=== PATIENT | male | born 1990 | race Caucasian/White ===

== ENCOUNTER 2017-10-09 21:10 | Inpatient (IN) | payer SELFPAY ==
[2017-10-09 22:56] LABS: BASO % 0.8 % (0.0-2.0); EOS % 0.5 % (0.0-4.0); HEMATOCRIT 43.1 % (35.0-51.0); LYMPH % 16.4 % (20.0-40.0); MEAN CELL VOLUME 87.9 fL (80.0-94.0); MEAN CORPUSCULAR HEMOGLOBIN 30.4 pg (27.0-31.0); MEAN CORPUSCULAR HGB CONC 34.6 g/dL (33.0-37.0); MEAN PLATELET VOLUME 7.5 fL (7.2-11.7); MONO # 0.4 K/uL (0.0-0.8); MONO % 7.1 % (0.0-10.0); RED CELL DISTRIBUTION WIDTH 12.8 % (11.5-14.5); WHITE BLOOD COUNT 6.2 K/uL (4.8-10.8)
[2017-10-09 22:58] LABS: RBC URINE 1 /hpf (0-3); URINE BILIRUBIN NEGATIVE (NEGATIVE); URINE BLOOD NEGATIVE (NEGATIVE); URINE COLOR Yellow (YELLOW); URINE GLUCOSE (UA) NORMAL (Normal); URINE KETONE TRACE mg/dL (NEGATIVE); URINE LEUKOCYTE ESTERASE NEG Leu/uL (Negative); URINE PROTEIN NEGATIVE (NEGATIVE); WBC URINE 1 /hpf (0-5)
--- NOTE | 2017-10-09 22:58 | C.PDOC ---
History Of Present Illness Patient presents to ED stating he is depressed and wants to kill himself. Patient is pleasant and cooperative; denies physical complaints. Time Seen by Provider: 10/09/17 22:57 Chief Complaint (Nursing): Psychiatric Evaluation History Per: Patient History/Exam Limitations: no limitations Onset/Duration Of Symptoms: Hrs Current Symptoms Are (Timing): Still Present Suicide/Self Injury Attempted (Context): None Modifying Factor(s): None Severity: None Pain Scale Rating Of: 0 Associated Symptoms: Depression, Suicidal Thoughts. denies: Suicidal Plan Involuntary Hold By: None Recent travel outside of the [place]: No Additional History Per: Patient Past Medical History Reviewed: Historical Data, Nursing Documentation, Vital Signs Vital Signs: Last Vital Signs Temp 98.0 F 10/10/17 00:26 Pulse 67 10/10/17 00:26 Resp 18 10/10/17 00:26 BP 133/90 10/10/17 00:26 Pulse Ox 100 10/10/17 00:26 - Medical History PMH: Asthma Denies: Hepatitis, HIV, HTN Surgical History: No Surg Hx Family History: States: No Known Family Hx - Social History Hx Alcohol Use: No Hx Substance Use: Yes Review Of Systems Constitutional: Negative for: Fever, Chills Gastrointestinal: Negative for: Nausea, Vomiting, Diarrhea Neurological: Negative for: Weakness Psych: Positive for: Depression, Suicidal ideation Physical Exam - Physical Exam Appears: Non-toxic, Other (Awake and alert) Skin: Warm, Dry Head: Normacephalic Eye(s): bilateral: Normal Inspection Oral Mucosa: Moist Neck: Supple Chest: Symmetrical, No Tenderness Cardiovascular: Rhythm Regular Respiratory: No Rales, No Rhonchi, No Wheezing Gastrointestinal/Abdominal: Soft, No Tenderness Back: No CVA Tenderness Extremity: Normal ROM Extremity: Bilateral: Atraumatic Neurological/Psych: Oriented x3 Gait: Steady ED Course And Treatment - Laboratory Results Result Diagrams: 10/09/17 22:53 10/09/17 22:53 O2 Sat by Pulse Oximetry: 96 (Room air) Pulse Ox Interpretation: Normal Progress Note: Ordered urinalysis and blood work. Administered Tylenol. Crisis notified. Disposition Discussed With : Bienvenido Delgado Comment: accepted the pt on his service and took over the care at 1:15 AM Doctor Will See Patient In The: Hospital Counseled Patient/Family Regarding: Studies Performed, Diagnosis - Disposition Disposition: HOSPITALIZED Disposition Time: 22:58 Condition: FAIR Forms: [facility] (Estonian) - POA Present On Arrival: None - Clinical Impression Clinical Impression: Bipolar 1 disorder - Scribe Statement The provider has reviewed the documentation as recorded by the Scribe Kareem Cardenas All medical record entries made by the Scribe were at my direction and personally dictated by me. I have reviewed the chart and agree that the record accurately reflects my personal performance of the history, physical exam, medical decision making, and the department course for this patient. I have also personally directed, reviewed, and agree with the discharge instructions and disposition. Decision To Admit - Pt Status Changed To: Hospital Disposition Of: Inpatient - Admit Certification Admit to Inpatient:: After my assessment, the patient will require hospitalization for at least two midnights. This is because of the severity of symptoms shown, intensity of services needed, and/or the medical risk in this patient being treated as an outpatient. - InPatient: Physician Admission Certification: I certify that this patient requires 2 or more midnights of care for the following reason:: After my assessment, the patient will require hospitalization for at least two midnights. This is because of the severity of symptoms shown, intensity of services needed, and/or the medical risk in this patient being treated as an outpatient. - . Bed Request Type: Psychiatry Admitting Physician: Bienvenido Delgado Patient Diagnosis: Bipolar 1 disorder
[2017-10-09 23:03] VITALS: RESP 18
[2017-10-09 23:08] LABS: ALCOHOL SERUM < 10 mg/dl (0-10); ALKALINE PHOSPHATASE 62 U/L (38-126); ALT/SGPT 28 U/L (21-72); AST/SGOT 35 U/L (17-59); BILIRUBIN,TOTAL 0.7 mg/dL (0.2-1.3); BLOOD UREA NITROGEN 17 mg/dL (9-20); CALCIUM 8.9 mg/dl (8.6-10.4); CARBON DIOXIDE 29 mmol/L (22-30); CHLORIDE 98 mmol/L (98-107); GFR AFRICAN-AMERICAN > 60; GLUCOSE,RANDOM 94 mg/dL (75-110); SODIUM 136 mmol/L (132-148); TOTAL PROTEIN 8.5 g/dL (6.3-8.3)
[2017-10-09 23:10] LABS: ALB/GLOB RATIO 1.3 (1.0-2.1)
[2017-10-10 01:36] VITALS: TEMP 98.4; O2SAT 95
--- NOTE | 2017-10-10 03:05 | PCM.BM ---
<Sisi Jones - Last Filed: 10/10/17 03:02> Treatment Plan Problems - Problems identified on initial assessmt Bipolar diorder Date Initiated: 10/10/17 Time Initiated: 03:03 Assessment reference: NA Status: Active Depression Date Initiated: 10/10/17 Time Initiated: 03:03 Assessment reference: NA Status: Active Treatment assets and liabiliti Patient Assests: cooperative, educated, insightful, motivated, self-reliant, ADL independent, physically healthy, negotiates basic needs Patient Liabilities: live alone, relationship conflicts, substance abuse - Milieu Protocol Maintain good personal hygiene: daily Encourage regular showers, daily Remind patient to perform daily oral care, other Assist patient to perform ADL's (prn) Maintain personal safety: every other day Monitor environment for contraband/ sharps, other Educate patient to report safety concerns to staff (prn) Medication safety: Monitor for expected outcome, potential side effects: every shift, Assess barriers to learning: every shift, Assess readiness for medication education: every shift <Freida Menon - Last Filed: 10/10/17 11:08> Family Contact Family involvement: Famliy/SO not involved - Goals for Treatment Patient goals for treatment: "I need to be tested for an STI." Discharge/Continuing Care - Education Needs Education Needs: Patient Medication, Patient Coping Skills, Patient Community resources - Discharge Discharge Criteria: Tolerates medication w/o severe side effects, Reduction of target symptoms Discharge to:: Home - Treatment Team Participation Discussed with Family/SO: No Was Patient/Family/SO present at Treatment Team Meeting: Yes <Hillary Ortiz - Last Filed: 10/10/17 11:12> - Diagnosis (1) Bipolar 1 disorder Status: Acute Interventions: 10/10/17 11:12 * Assess/adjust medications daily and /or as needed * See patient on an individual basis 7x/week to assess level of manic behaviors and stability * Discuss risks, benefits, side effects and alternatives of medications *
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
--- NOTE | 2017-10-10 17:02 | RAD ---
PROCEDURE: Right Hand Radiographs. HISTORY: Trauma, Pain, and difficulty closing hand COMPARISON: None. FINDINGS: BONES: Normal. No fracture. JOINTS: Normal. No osteoarthritic changes. SOFT TISSUES: Normal. OTHER FINDINGS: None. IMPRESSION: Normal right hand radiographs.
[2017-10-11] MEDS ORDERED: Pneumococcal 23-Valent Vaccine IM ONE (03:14)
--- NOTE | 2017-10-11 09:43 | PCM.PYCHPN ---
Psychiatric Progress Note - Psychiatric Progress Note Patient seen today, length of contact: 15 min Patient Chief Complaint: I am feeling little better Problems Identified/Issues Discussed: Patient seen and evaluated, chart reviewed and discussed with the nurse. Patient reports he is feeling much better. He reports improvement in his depressed mood and reports improvement in the anxiety symptoms. He denies any auditory or visual hallucinations. He remained calm and cooperative. He denies any feelings of hopelessness and helplessness. He is taking medication and denies any side effects. He needs more time for stabilization. Supportive therapy and psychoeducation were given. Medication Change: Yes Medical Record Reviewed: Yes Mental Status Examination - Cognitive Function Orientation: Person, Place, Situation Memory: Intact Attention: WNL Concentration: Poor Association: WNL Fund of Knowledge: Poor - Mood Mood: Depressed, Anxious - Affect Affect: Depressed - Formal Thought Process Formal Thought Process: No Impairment - Suicidal Ideation Suicidal Ideation: No - Homicidal Ideation Homicidal Ideation: No Goal/Treatment Plan - Goal/Treatment Plan Need for Continued Stay: Discharge may exacerbated symptoms, Severe functional impairment Progress Toward Problem(s) and Goals/Treatment Plan: 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
[2017-10-11 15:42] VITALS: BP 125/78; PULSE 94
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
== END 2017-10-12 10:20 | disposition home or self-care (01) | DRG 885 ==
LOC: C.ER 21:10 → C.5E 10-10 01:17
DX: F32.3 Major depressive disorder, single episode, severe with psychotic features (principal); R45.851 Suicidal ideations; F14.20 Cocaine dependence, uncomplicated; R45.850 Homicidal ideations; J45.909 Unspecified asthma, uncomplicated; F41.9 Anxiety disorder, unspecified; F12.20 Cannabis dependence, uncomplicated; F17.210 Nicotine dependence, cigarettes, uncomplicated

== ENCOUNTER 2017-11-17 07:54 | Emergency (ER) | payer MEDICAID, OTHER ==
[2017-11-17 08:20] VITALS: O2SAT 98
[2017-11-17] MEDS ORDERED: Sodium Chloride 0.9% 1,000 ML IV ONE (08:24)
[2017-11-17] MEDS ORDERED: Sodium Chloride 0.9% 1,000 ML ONE (08:41)
[2017-11-17 09:00] LABS: BASO % 0.2 % (0.0-2.0); EOS # 0.1 K/uL (0.0-0.7); EOS % 0.4 % (0.0-4.0); HEMOGLOBIN 15.1 g/dL (12.0-18.0); LYMPH # 0.2 K/uL (1.0-4.3); LYMPH % 1.2 % (20.0-40.0); MEAN CELL VOLUME 88.2 fL (80.0-94.0); MEAN CORPUSCULAR HEMOGLOBIN 31.1 pg (27.0-31.0); MEAN CORPUSCULAR HGB CONC 35.3 g/dL (33.0-37.0); MEAN PLATELET VOLUME 6.7 fL (7.2-11.7); MONO # 0.4 K/uL (0.0-0.8); MONO % 2.7 % (0.0-10.0); NEUT # 13.7 K/uL (1.8-7.0); NEUT % 95.5 % (50.0-75.0); PLATELET COUNT 245 K/uL (130-400); RBC 4.85 Mil/uL (4.40-5.90); WHITE BLOOD COUNT 14.3 K/uL (4.8-10.8)
[2017-11-17 09:12] LABS: ALB/GLOB RATIO 1.3 (1.0-2.1); ALBUMIN 4.4 g/dL (3.5-5.0); ALT/SGPT 26 U/L (21-72); AST/SGOT 23 U/L (17-59); BLOOD UREA NITROGEN 18 mg/dL (9-20); CALCIUM 9.4 mg/dl (8.6-10.4); GFR AFRICAN-AMERICAN > 60; GFR NON-AFRICAN AMERICAN > 60; LIPASE 65 U/L (23-300)
[2017-11-17 09:20] LABS: BANDS 1 % (0-2); EOSINOPHIL 1 % (0-4); LYMPHOCYTE 3 % (20-40); MONOCYTE 3 % (0-10); NEUTROPHIL 92 % (50-75); PLATELET ESTIMATE NORMAL (NORMAL); TOTAL CELLS COUNTED 100
--- NOTE | 2017-11-17 09:38 | C.PDOC ---
History Of Present Illness 27 year old male presents to ED with complaints of multiple episodes of non- bloody, non-bilious watery diarrhea since last night after eating dinner. Pt reports eating hamburger, chicken, namibian fries, and pork for dinner last night. Notes that he felt fine before the dinner. Denies fever, cough, or other complaints. Chief Complaint (Nursing): Abdominal Pain History Per: Patient History/Exam Limitations: no limitations Onset/Duration Of Symptoms: Days Current Symptoms Are (Timing): Still Present Location Of Pain/Discomfort: Epigastric Radiation Of Pain To:: None Quality Of Discomfort: "Pain" Associated Symptoms: Diarrhea. denies: Back Pain, Chest Pain, Constipation, Urinary Symptoms Exacerbating Factors: None Alleviating Factors: None Recent travel outside of the [place]: No Additional History Per: Patient Past Medical History Reviewed: Historical Data, Nursing Documentation, Vital Signs Vital Signs: Last Vital Signs Temp 98.7 F 11/17/17 12:54 Pulse 95 H 11/17/17 12:54 Resp 16 11/17/17 12:54 BP 137/87 11/17/17 12:54 Pulse Ox 98 11/17/17 12:54 - Medical History PMH: Anxiety, Asthma, Depression Denies: Diabetes, Hepatitis, HIV, HTN, Chronic Kidney Disease, Seizures, Sexually Transmitted Disease - [facility] GROUP PSYCHOTHERAPY (10/15/17) INDIVIDUAL PSYCHOTHERAPY, BEHAVIORAL (10/15/17) Family History: States: Unknown Family Hx - Social History Hx Alcohol Use: No (once a month or none at all) Hx Substance Use: No (MJ crack/cocaine and heroin) Review Of Systems Except As Marked, All Systems Reviewed And Found Negative. Constitutional: Negative for: Fever, Chills Gastrointestinal: Positive for: Abdominal Pain, Diarrhea. Negative for: Nausea , Vomiting, Melena, Hematochezia Genitourinary: Negative for: Dysuria, Frequency, Hematuria Musculoskeletal: Negative for: Back Pain Physical Exam - Physical Exam Appears: Non-toxic, No Acute Distress Skin: Normal Color, Warm, Dry Head: Atraumatic, Normacephalic Eye(s): bilateral: Normal Inspection Oral Mucosa: Moist Neck: Normal ROM, Supple Cardiovascular: Rhythm Regular, No Murmur Respiratory: Normal Breath Sounds, No Rales, No Rhonchi, No Wheezing Gastrointestinal/Abdominal: Bowel Sounds, Soft, Tenderness (epigastric), No Guarding, No Rebound Back: No CVA Tenderness Extremity: Normal ROM, No Deformity Neurological/Psych: Oriented x3, Normal Speech ED Course And Treatment - Laboratory Results Result Diagrams: 11/17/17 08:54 11/17/17 08:54 O2 Sat by Pulse Oximetry: 98 (RA) Pulse Ox Interpretation: Normal Medical Decision Making Medical Decision Making: Plan: Blood work Urinalysis Pepcid, Zofran, IV fluids Reassess and disposition Disposition - [facility] - Disposition: HOME/ ROUTINE Disposition Time: 12:10 Condition: GOOD Additional Instructions: Thank you for letting us take care of you today. The emergency medical care you received today was directed at your acute symptoms. If you were prescribed any medication, please fill it and take as directed. It may take several days for your symptoms to resolve. Return to the Emergency Department if your symptoms worsen, do not improve, or if you have any other problems. Please contact your doctor or call one of the physicians/clinics you have been referred to that are listed on the Patient Visit Information form that is included in your discharge packet. Bring any paperwork you were given at discharge with you along with any medications you are taking to your follow up visit. Our treatment cannot replace ongoing medical care by a primary care provider (PCP) outside of the emergency department. Thank you for allowing the [facility] team to be part of your care today. Keep hydrated throughout the day. Follow up with your doctor in 3-4 days for re-evaluation and further management. Prescriptions: Ondansetron ODT [Zofran ODT] 8 mg PO Q8 PRN #15 odt PRN Reason: Nausea/Vomiting Ranitidine HCl [Zantac] 150 mg PO BID #20 tablet Instructions: Gastroenteritis (ED) Forms: [employer] (Irish) - Clinical Impression Clinical Impression: Enteritis - Scribe Statement The provider has reviewed the documentation as recorded by the Elizabethibelias Naidu All medical record entries made by the Scribe were at my direction and personally dictated by me. I have reviewed the chart and agree that the record accurately reflects my personal performance of the history, physical exam, medical decision making, and the department course for this patient. I have also personally directed, reviewed, and agree with the discharge instructions and disposition.
[2017-11-17] MEDS ORDERED: Iodixanol 320 MG/ML 100 ML BOTTLE IV ONE (10:43)
--- NOTE | 2017-11-17 12:23 | CT ---
PROCEDURE: CT scan abdomen pelvis dated 11/17/2017 HISTORY: Diffuse e abdominal pain COMPARISON: No prior TECHNIQUE: Contiguous helical/transaxial sections of the abdomen pelvis performed following intravenous injection of approximately 100 cc Visipaque 320 contrast material. . Additional 2 dimensional sagittal and coronal Given. Coronal and Sagittal reformats generated. Radiation dose: Total exam DLP = 222.71 mGy-cm. This CT exam was performed using one or more of the following dose reduction techniques: Automated exposure control, adjustment of the mA and/or kV according to patient size, and/or use of iterative reconstruction technique. FINDINGS: LOWER THORAX: Unremarkable. LIVER: Liver is enlarged measuring nearly 20 cm in CC dimension. No obvious hepatic mass collection or calcification. Portal and splenic veins are opacified. GALLBLADDER AND BILE DUCTS: Gallbladder is physiologically distended. No evidence of intraluminal gallbladder calculi. PANCREAS: Pancreas appears grossly unremarkable without masses collections or calcifications. No significant pancreatic ductal dilatation. . SPLEEN: Spleen exhibits normal size and attenuation pattern without mass collection or calcification. ADRENALS: No adrenal lesions seen. KIDNEYS AND URETERS: Kidneys demonstrate symmetric nephrograms. No evidence of nephrolithiasis or hydronephrosis. BLADDER: The urinary bladder is physiologically distended. No evidence of intraluminal urinary bladder calculi. REPRODUCTIVE: Unremarkable as visualized APPENDIX: Appendix is not seen with certainty on this study. . No definitive inflammatory changes right lower quadrant of the abdomen. BOWEL: Evaluation of the bowel is limited due to the lack of oral contrast material. The stomach is distended with liquid and air. No evidence of acute mechanical bowel obstruction. Multiple loops of proximal small bowel exhibits thick-walled appearance. The small bowel contains a relatively large amount of fluid. Findings may represent an enteritis. . There also appears to be a large amount of fluid within cecum and ascending colon and rectosigmoid. Questionable wall thickening of short segment of the descending colon . The possibility of a concomitant mild localized colitis not excluded. PERITONEUM: Unremarkable. No fluid collection. No free air. LYMPH NODES: Unremarkable. No enlarged lymph nodes. VASCULATURE: Unremarkable. No aortic aneurysm. BONES: No fracture or destructive lesion. OTHER FINDINGS: None. IMPRESSION: Findings most likely represent a nonspecific enteritis and possible localize colitis as detailed above. . No evidence acute mechanical bowel obstruction. The appendix not seen with certainty on this study. Hepatomegaly. Note these findings were discussed with Dr. Menendez at approximately 12 10 p.m. with written down and read back verification.
[2017-11-17 12:44] LABS: URINE BILIRUBIN NEGATIVE (NEGATIVE); URINE BLOOD NEGATIVE (NEGATIVE); URINE CLARITY Clear (Clear); URINE COLOR Yellow (YELLOW); URINE GLUCOSE (UA) NORMAL (Normal); URINE LEUKOCYTE ESTERASE NEG Leu/uL (Negative); URINE NITRATE NEGATIVE (NEGATIVE); URINE PROTEIN NEGATIVE (NEGATIVE); URINE UROBILINOGEN NORMAL mg/dL (0.2-1.0)
[2017-11-17 12:55] VITALS: BP 137/87; PULSE 95; RESP 16; TEMP 98.7
== END 2017-11-17 12:54 | disposition home or self-care (01) ==
LOC: C.ER 07:54
DX: K52.9 Noninfective gastroenteritis and colitis, unspecified (principal)
CPT/HCPCS: 74177; 80053; 81001; 83690; 85025; 96361; 96374; 96375; 99284; J2405; J7040; Q9967

== ENCOUNTER 2017-12-09 07:16 | Emergency (ER) | payer OTHER ==
[2017-12-09 07:17] VITALS: BMI 19.3
[2017-12-09 07:23] VITALS: O2SAT 99
--- NOTE | 2017-12-09 08:17 | C.PDOC ---
History Of Present Illness Usman Garcia is a 27 year old male, whose past medical history includes asthma , bipolar disorder, and anxiety, presents to the ED complaining of his asthma bothering him. Patient reports using his inhaler with no significant relief. He also mentions having a mechanical fall and injuring his left knee. Patient admits to using PCP last night and is currently tired, but responsive. Patient denies chest pain, fever, cough, nausea, vomiting, dysuria, or other complaints. Patient was poor historian. Time Seen by Provider: 12/09/17 07:27 Chief Complaint (Nursing): Lower Extremity Problem/Injury History Per: Patient History/Exam Limitations: other (poor historian) Onset/Duration Of Symptoms: Hrs (last night) Current Symptoms Are (Timing): Still Present Associated Symptoms: denies: Cough, Fever Severity: None Recent travel outside of the [place]: No Past Medical History Reviewed: Historical Data, Nursing Documentation, Vital Signs Vital Signs: Last Vital Signs Temp 98.7 F 12/09/17 11:05 Pulse 84 12/09/17 11:05 Resp 20 12/09/17 11:05 BP 129/83 12/09/17 11:05 Pulse Ox 99 12/09/17 11:05 - Medical History PMH: Anxiety, Asthma, Bipolar Disorder, Depression Denies: Diabetes, Hepatitis, HIV, HTN, Chronic Kidney Disease, Seizures, Sexually Transmitted Disease - [facility] GROUP PSYCHOTHERAPY (11/30/17) INDIVIDUAL PSYCHOTHERAPY, BEHAVIORAL (10/15/17) INDIVIDUAL PSYCHOTHERAPY, COGNITIVE-BEHAVIORAL (11/30/17) INDIVIDUAL PSYCHOTHERAPY, SUPPORTIVE (11/03/17) MEDICATION MANAGEMENT (11/03/17) Family History: States: Unknown Family Hx - Social History Hx Tobacco Use: Yes Hx Alcohol Use: No Hx Substance Use: Yes (mj/wkly) - Immunization History Hx Tetanus Toxoid Vaccination: No Hx Influenza Vaccination: No Hx Pneumococcal Vaccination: No Review Of Systems Constitutional: Negative for: Fever Cardiovascular: Negative for: Chest Pain Respiratory: Positive for: Shortness of Breath (difficulty breathing due to asthma). Negative for: Cough Gastrointestinal: Negative for: Nausea, Vomiting, Abdominal Pain Genitourinary: Negative for: Dysuria Musculoskeletal: Positive for: Leg Pain (left knee pain ) Skin: Negative for: Rash Neurological: Negative for: Dizziness Psych: Negative for: Anxiety Physical Exam - Physical Exam Appears: Well, Non-toxic, No Acute Distress, Other (appears tired but responsive ) Skin: Normal Color, Warm, Dry Head: Atraumatic, Normacephalic Eye(s): bilateral: Normal Inspection, EOMI, Abnormal Pupil (dilated pupils), left: Other (possible corneal transplant of left eye) Cardiovascular: Rhythm Regular, No Murmur Respiratory: Normal Breath Sounds, No Decreased Breath Sounds, No Rales, No Rhonchi, No Wheezing Gastrointestinal/Abdominal: Normal Exam, Bowel Sounds (normal), Soft, No Tenderness, No Distention, No Guarding, No Rebound Extremity: Normal ROM Neurological/Psych: Oriented x3, Normal Speech ED Course And Treatment O2 Sat by Pulse Oximetry: 99 (room air) Pulse Ox Interpretation: Normal Medical Decision Making Medical Decision Making: Impression: 27 y/o male with dilated pupils, who is currently sleepy but responsive c/o asthma and admits to PCP use. Plan: -- Labs -- Reassess and disposition Progress Notes: pt sleeping, easily aroused. multiple requests made of patient to remove pants for exam of lower extremities; pt has not done so yet. will continue to observe. 1140 am pt easily aroused from sleep, denies any compaints at this time, pt ambulates with steady gait. pt left prior to discharge papers being given. Disposition - Disposition Referrals: [facility] [Outside] Disposition: HOME/ ROUTINE Disposition Time: 11:40 Condition: IMPROVED Additional Instructions: Follow up in medical clinic. Instructions: Polysubstance Abuse Forms: [facility] (Thai), General Discharge Instructions - Clinical Impression Clinical Impression: Substance abuse - Scribe Statement The provider has reviewed the documentation as recorded by the Scribe Scribe Attestation: Tiesha Whitman MD Scribe Attestation: All medical record entries made by the Scribe were at my direction and personally dictated by me. I have reviewed the chart and agree that the record accurately reflects my personal performance of the history, physical exam, medical decision making, and the department course for this patient. I have also personally directed, reviewed, and agree with the discharge instructions and disposition.
[2017-12-09 11:05] VITALS: BP 129/83; PULSE 84; RESP 20; TEMP 98.7
== END 2017-12-09 11:12 | disposition home or self-care (01) ==
LOC: C.ER 07:16
DX: F19.10 Other psychoactive substance abuse, uncomplicated (principal); Z72.0 Tobacco use

== ENCOUNTER 2017-12-23 22:44 | Emergency (ER) | payer OTHER ==
[2017-12-23 22:45] VITALS: BMI 19.3
[2017-12-23 23:07] VITALS: BP 142/85; PULSE 82; RESP 18; TEMP 98; O2SAT 99
== END 2017-12-23 23:11 | disposition left against medical advice (07) ==
LOC: SUPCPDRO 22:44 → C.ER 22:44
DX: Z02.89 Encounter for other administrative examinations (principal); Z00.00 Encounter for general adult medical examination without abnormal findings